=== PATIENT | male | born 1970 | race Caucasian/White ===

== ENCOUNTER 2018-01-29 10:06 | Emergency (ER) | payer OTHER ==
[~2018-01-29] VITALS: Ht 182.9 cm; Wt 102.1 kg
[2018-01-29 10:10] VITALS: BP 142/82
== END 2018-01-29 11:52 | disposition admitted as inpatient to this hospital (09) ==
LOC: ERH 10:06
DX: S81.811A Laceration without foreign body, right lower leg, initial encounter (principal); W26.8XXA Contact with other sharp object(s), not elsewhere classified, initial encounter